=== PATIENT | female | born 1940 | race African-American/Black ===

== ENCOUNTER → 2017-01-26 | Outpatient (CLI) | payer OTHER ==
[~2017-01-26] MED LIST: ACETAMINOPHEN PO; ALPRAZOLAM0.5 MG PO; PRILOSEC40 MG PO; PRISTIQ50 MG PO
--- NOTE | ~2017-01-26 | US6 ---
[facility] A Service of [facility] RADIOLOGY TEXT RESULTS PATIENT: JULITA ACHARYA LOCATION: [facility] : 40 UNIT #: [id number] AGE: [address]: KANIKA WALTON MD SEX: F ORDER DR: [id number] [facility] [address] [place], [place] [address] [id number] MR#: [id number] Acc #: [id number] NAME: JULITA ACHARYA : 1940 SEX: F STUDY DATE/TIME: 01/26/2017 9:19 UNIT: [facility] ROOM: STUDY DESCRIPTION: US Abdominal Limited Attending Physician: Kanika Walton M.D. Referring Physician: Kanika Walton M.D. Ordering Physician: Kanika Walton M.D. Primary Care Physician: Kanika Walton M.D. MEDICAL IMAGING REPORT This report is preliminary unless electronic signature is present EXAM Right upper quadrant abdominal ultrasound INDICATION Right upper quadrant abdominal pain. Elevated liver enzyme levels for the past month. PROCEDURE Jones-scale, Doppler imaging, right upper quadrant of the abdomen. COMPARISON None. FINDINGS Visualized portions of the pancreas are unremarkable. The majority is obscured by bowel gas. Liver measures 12.1 cm in length. The liver is difficult to evaluate on this study. There is a possible bulge to the liver contour in the right hepatic lobe that is not well seen or characterized. The right kidney measures 10.3 cm in length. Gallbladder is contracted but otherwise unremarkable. Common duct measures approximately 2 mm. IMPRESSION 1. Technically difficult study. 2. Apparent bulge to the liver contour in the right hepatic lobe which is not well seen or characterized on this study. It could simply be artifact, but could be an actual finding. Recommend evaluation with CT or MRI. STAT * RESULT Dictated by... [facility] A Service of [facility] RADIOLOGY TEXT RESULTS PATIENT: JULITA ACHARYA LOCATION: [facility] : 40 UNIT #: [id number] AGE: [address]: KANIKA WALTON MD SEX: F ORDER DR: Colt Penn M.D. THIS IS AN ELECTRONICALLY VERIFIED REPORT Colt Penn M.D. at 01/27/2017 7:00 AM STEFANIE/pam TD: 01/26/2017 11:41 JOB #: [id number] MEDICAL IMAGING REPORT Page 1 of 1 COPY
== END | disposition home or self-care (01) ==
LOC: CWCC 09:00
DX: R94.5 Abnormal results of liver function studies (principal); R10.11 Right upper quadrant pain
CPT/HCPCS: 76705